=== PATIENT | female | born 1955 | race Caucasian/White ===

== ENCOUNTER 2018-06-10 07:42 | Day surgery (SDC) | END 2018-06-10 10:57 | disposition home or self-care (01) ==

== ENCOUNTER 2019-01-05 06:29 | Day surgery (SDC) | payer OTHER ==
[~2019-01-05] VITALS: Ht 154.9 cm; Wt 48.5 kg
[2019-01-05] VITALS (11 sets, daily range): BP systolic 118–192; BP diastolic 64–101; PULSE 64–74; RESP 16–21; Ht 154.9 cm; Wt 48.5 kg
[~2019-01-05 06:29] MED LIST: AMLO-147 PO; ATEN-51 PO; CALC1TAB79 PO; GLIM2TAB PO; LISI30TA47 PO; OMEP20CA16 PO; POTA10TA37 PO; PRAV20TA63 PO
[2019-01-05] MEDS ORDERED: B CO1TAB14 PO (07:35)
[2019-01-05] MEDS ORDERED: FER325 PO (07:36)
[2019-01-05] MEDS ORDERED: AMLO2.5T78 PO (07:36)
[2019-01-05] MEDS ORDERED: POTA10TA37 PO (07:36)
[2019-01-05] MEDS ORDERED: CHOL500010 PO (07:39)
[2019-01-05] MEDS ORDERED: SOD CHLORIDE 0.9% 1,000 ML IV SCH (08:52)
[2019-01-05] MEDS ORDERED: LIDOCAINE 1% (MPF) 5 ML VIAL ONE (09:52)
[2019-01-05] MEDS ORDERED: FENTAnyl 50 MCG/ML VIAL ONE (10:33)
[2019-01-05] MEDS ORDERED: SOD CHLORIDE 0.9% 500 ML ONE (10:33)
== END 2019-01-05 14:05 | disposition home or self-care (01) ==
LOC: SDS 06:29
PROVIDERS: ATTEND Internal Medicine Hematology & Oncology
DX: Z85.72 Personal history of non-Hodgkin lymphomas (principal); I10 Essential (primary) hypertension; E11.9 Type 2 diabetes mellitus without complications; E78.00 Pure hypercholesterolemia, unspecified
CPT/HCPCS: 38221; 77012; 88305; 88311; 88313; J3010; J7040; Z7610